=== PATIENT | male | born 1970 | race Caucasian/White ===

== ENCOUNTER 2022-03-23 18:37 | Emergency (ER) | payer OTHER ==
[~2022-03-23] VITALS: Ht 167.6 cm; Wt 88.5 kg
[~2022-03-23 18:37] MED LIST: KETO10TA2 PO
== END 2022-03-23 22:33 | disposition designated cancer center or children's hospital (05) ==
LOC: ER 18:37
DX: I21.9 Acute myocardial infarction, unspecified (principal); Z20.822 Contact with and (suspected) exposure to COVID-19

== ENCOUNTER 2024-08-23 09:00 | Inpatient (IN) | payer OTHER ==
[~2024-08-23] VITALS: Ht 170.2 cm; Wt 93.0 kg
[2024-08-23] MEDS ORDERED: ATORVASTATIN CA40 MG PO (09:11)
[2024-08-23] MEDS ORDERED: TOPROL XL25 M1 PO (09:11)
[2024-08-23] MEDS ORDERED: COZAAR25 MG PO (09:11)
[2024-08-23] MEDS ORDERED: BRILINTA60 MG PO (09:11)
--- NOTE | 2024-08-23 09:13 | NUR ---
PACIENTE ALERTA Y ORIENTADO X3 REFIERE QUE DESDE EL OCTAVIO ESTAR CON DOLOR ABDOMINAL FLANCO LIBBY Y TENER UNAS PUNZADAS. REFIERE EVACUAR MUY POCO. NIEGA VOMITOS O SANGR[place].
[2024-08-23] MEDS ORDERED: FAMOTIDINE/PF 20 MG in 0.9 % SODIUM CHLORIDE 8 ML IV PUSH STA (09:28)
[2024-08-23] MEDS ORDERED: MORPHINE SULFATE 4 MG/ML VIAL IV ONE (09:30)
[2024-08-23] MEDS ORDERED: PIPERACILLIN/TAZOBACTAM SODIUM 3.375 GM VIAL IV ONE (09:30)
[2024-08-23] MEDS ORDERED: 0.9 % SODIUM CHLORIDE 1,000 ML IV SCH ×2 (09:30→16:45)
[2024-08-23] MEDS ORDERED: ONDANSETRON HCL 2 MG/ML VIAL IV ONE (09:45)
--- NOTE | 2024-08-23 10:38 | NUR ---
SE ORIENTA A PACIENTE SOBRE TRATAMIENTO MEDICO QUIEN INDICA ENTENDER Y ACEPTAR. SE COLECTAN MUESTRAS DE LABORATORIO BAJO MEDIDAS ASEPTICAS Y SE ADMINISTRAN MEDICAMENTOS KRIS ORDEN MEDICA. PENDIENTE CT CON CONTRASTE PO.
[2024-08-23 10:52] LABS: HEMATOCRIT 36.2 % (39.0-48.0); HEMOGLOBIN 11.1 g/dL (13-16.00); MEAN CELL VOLUME 72.7 fL (80.0-100.00); MEAN CORPUSCULAR HEMOGLOBIN 22.4 pg (27.00-32.0); MEAN CORPUSCULAR HGB CONC 30.8 g/dl (32.0-36.0); PLATELET COUNT 394 K/uL (150-450); RED BLOOD COUNT 4.98 M/uL (4.00-6.00)
[2024-08-23 11:15] LABS: ALBUMIN 2.8 gm/dL (3.4-5.0); BILIRUBIN TOTAL 0.63 mg/dL (0.3-1.2); CALCIUM 8.6 mg/dL (8.5-10.1); CREATININE SERUM 1.01 mg/dL (0.70-1.30); GFR 77.57; GLOBULINA 5.1 G/DL (2.4-3.5); POTASSIUM 4.1 mEq/L (3.5-5.1); TOTAL PROTEIN 7.9 gm/dL (6.4-8.2)
[2024-08-23 11:49] LABS: PH,URINE 5.5 (5.0-8.0); URINE APPEARANCE Turbid; URINE BACTERIA 834.7 uL (0.0-1933); URINE BILIRRUBIN Small (NEGATIVE); URINE BLOOD Negative; URINE CAST 8.69 uL (0.0-1.40); URINE COLOR Dark Yellow; URINE EPITHELIAL CELLS 49.2 uL (0.0-38.8); URINE GLUCOSE Negative (NEGATIVE); URINE KETONE Trace (NEGATIVE); URINE LEUKOCYTE Negative; URINE NITRATE Negative; URINE RBC 24.4 uL (0.0-20.8); URINE WBC 15.1 uL (0.0-23.2)
[2024-08-23 12:16] LABS: URINE PROTEIN 100 (NEGATIVE)
--- NOTE | 2024-08-23 15:07 | NUR ---
PTE ALERTA Y ORIENTADA X3, PTE EN CAN CON BARANDAS ELEVADAS POR HINSON SEGURIDAD. PTE EN CAN CON BARANDAS ELEVADAS POR HINSON SEGURIDAD EN POSICION SEMI SENTADA. PTE EN ESPERA DE CONSULTA A DR. KANDIS DUKE
[2024-08-23] MEDS ORDERED: ONDANSETRON HCL 4 MG in 0.9 % SODIUM CHLORIDE 50 ML IV PRN (16:45)
[2024-08-23] MEDS ORDERED: ACETAMINOPHEN 500 MG GEL..CAP PO PRN (17:00)
[2024-08-23] MEDS ORDERED: MORPHINE SULFATE 4 MG/ML CARTRIDGE IV PRN (17:00)
[2024-08-23] MEDS ORDERED: PIPERACILLIN/TAZOBACTAM SODIUM 3.375 GM in 0.9 % SODIUM CHLORIDE 100 ML IV SCH (18:00)
[2024-08-23 19:50] LABS: INR 1.18; PARTIAL THROMBOPLASTIN TIME 30.5 SECONDS (22.0-34.0); PROTHROMBIN TIME 12.7 SECONDS (9.0-11.5)
[2024-08-23 21:58] VITALS: BP 130/64; O2SAT 97
[2024-08-24 02:06] VITALS: BP 114/76; O2SAT 95
[2024-08-24 08:00] VITALS: BP 112/71; O2SAT 96
[2024-08-24] MEDS ORDERED: METOPROLOL SUCCINATE 25 MG TAB.SR.24H PO SCH (09:00)
[2024-08-24] MEDS ORDERED: LOSARTAN POTASSIUM 25 MG TABLET PO SCH (09:00)
[2024-08-24] MEDS ORDERED: PANTOPRAZOLE SODIUM 40 MG/VIAL VIAL IV SCH (09:00)
[2024-08-24] MEDS ORDERED: ENOXAPARIN SODIUM 40 MG/0.4 ML SYRINGE SUBCUTANEO SCH (09:00)
[2024-08-24 15:50] VITALS: BP 123/70
[2024-08-25 03:31] VITALS: BP 123/78; O2SAT 97
[2024-08-25 05:15] LABS: HEMATOCRIT 28.7 % (39.0-48.0); MEAN CELL VOLUME 72.1 fL (80.0-100.00); MEAN CORPUSCULAR HGB CONC 31.5 g/dl (32.0-36.0); PLATELET COUNT 289 K/uL (150-450); RED BLOOD COUNT 3.99 M/uL (4.00-6.00); RED CELL DISTRIBUTION WIDTH 17.7 % (11.5-14.5)
[2024-08-25 05:20] LABS: HEMOGLOBIN 9.1 g/dL (13-16.00); MEAN CORPUSCULAR HEMOGLOBIN 22.8 pg (27.00-32.0)
[2024-08-25 05:37] LABS: ALBUMIN 2.1 gm/dL (3.4-5.0); BILIRUBIN TOTAL 0.51 mg/dL (0.3-1.2); CALCIUM 8.2 mg/dL (8.5-10.1); CREATININE SERUM 0.75 mg/dL (0.70-1.30); GFR 109.36; GLOBULINA 3.5 G/DL (2.4-3.5); PHOSPHOROUS 4.1 mg/dL (2.5-4.9); POTASSIUM 4.26 mEq/L (3.5-5.1); TOTAL PROTEIN 5.6 gm/dL (6.4-8.2)
[2024-08-25 05:38] LABS: C-REACTIVE PROTEIN 11.3 MG/DL (0.00-0.29)
[2024-08-25 08:45] VITALS: BP 112/69; O2SAT 98
[2024-08-25] MEDS ORDERED: SOD FERRIC GLUC COMPLX/SUCROSE 62.5 MG in 0.9 % SODIUM CHLORIDE 50 ML IV SCH (09:00)
[2024-08-25] MEDS ORDERED: CYANOCOBALAMIN (VITAMIN B-12) 1,000 MCG/ML VIAL IM SCH (09:00)
[2024-08-25 16:57] VITALS: BP 112/54
[2024-08-26 02:06] VITALS: BP 110/68; O2SAT 98
[2024-08-26 08:14] VITALS: BP 128/58
[2024-08-26 17:30] VITALS: BP 127/72; O2SAT 95
[2024-08-27 00:32] VITALS: BP 124/89
[2024-08-27 08:08] VITALS: BP 163/80; O2SAT 95
[2024-08-27 17:50] VITALS: BP 144/91; O2SAT 98
[2024-08-28 01:31] VITALS: BP 123/59
[2024-08-28 07:38] LABS: HEMATOCRIT 27.6 % (39.0-48.0); MEAN CELL VOLUME 71.9 fL (80.0-100.00); MEAN CORPUSCULAR HGB CONC 31.8 g/dl (32.0-36.0); PLATELET COUNT 327 K/uL (150-450); RED BLOOD COUNT 3.84 M/uL (4.00-6.00); RED CELL DISTRIBUTION WIDTH 18.1 % (11.5-14.5)
[2024-08-28 07:47] LABS: HEMOGLOBIN 8.8 g/dL (13-16.00); MEAN CORPUSCULAR HEMOGLOBIN 22.9 pg (27.00-32.0)
[2024-08-28 08:09] VITALS: BP 133/60; O2SAT 97
[2024-08-28 08:23] LABS: ALBUMIN 2.2 gm/dL (3.4-5.0); BILIRUBIN TOTAL 0.38 mg/dL (0.3-1.2); CALCIUM 7.9 mg/dL (8.5-10.1); CREATININE SERUM 0.83 mg/dL (0.70-1.30); GFR 97.29; GLOBULINA 3.8 G/DL (2.4-3.5); MAGNESIUM 1.9 mg/dL (1.8-2.4); POTASSIUM 4.53 mEq/L (3.5-5.1)
[2024-08-28] MEDS ORDERED: DIATRIZOATE MEGLUMINE, SODIUM 30 ML BOTTLE PO NR (11:00)
[2024-08-28 17:00] VITALS: BP 137/83
[2024-08-29 01:02] VITALS: BP 129/76; O2SAT 96
[2024-08-29 08:52] VITALS: BP 151/75; O2SAT 99
[2024-08-29 17:47] VITALS: BP 133/70
[2024-08-30 02:30] VITALS: BP 147/81; O2SAT 97
[2024-08-30] MEDS ORDERED: LACTOBACILLUS ACIDOPHILUS 1 CAP CAP PO SCH (09:00)
[2024-08-30 09:40] VITALS: BP 144/90; O2SAT 97
[2024-08-30 19:20] VITALS: BP 119/70
[2024-08-31 01:45] VITALS: BP 138/81; O2SAT 100
[2024-08-31 06:38] LABS: HEMATOCRIT 30.7 % (39.0-48.0); HEMOGLOBIN 9.7 g/dL (13-16.00); MEAN CELL VOLUME 72.8 fL (80.0-100.00); MEAN CORPUSCULAR HEMOGLOBIN 22.9 pg (27.00-32.0); MEAN CORPUSCULAR HGB CONC 31.5 g/dl (32.0-36.0); PLATELET COUNT 319 K/uL (150-450); RED BLOOD COUNT 4.22 M/uL (4.00-6.00); RED CELL DISTRIBUTION WIDTH 18.2 % (11.5-14.5)
[2024-08-31 07:08] LABS: ALBUMIN 2.1 gm/dL (3.4-5.0); BILIRUBIN TOTAL 0.33 mg/dL (0.3-1.2); CREATININE SERUM 0.79 mg/dL (0.70-1.30); GLOBULINA 4.1 G/DL (2.4-3.5); MAGNESIUM 1.7 mg/dL (1.8-2.4); POTASSIUM 4.42 mEq/L (3.5-5.1); TOTAL PROTEIN 6.2 gm/dL (6.4-8.2)
[2024-08-31 07:24] LABS: C-REACTIVE PROTEIN 2.82 MG/DL (0.00-0.29)
[2024-08-31 08:45] VITALS: BP 151/83; O2SAT 97
[2024-08-31] MEDS ORDERED: INTESTINEX680 M1 PO (09:10)
[2024-08-31] MEDS ORDERED: AMOX-CLAV 875-1 EACH PO (09:10)
[2024-08-31 09:15] LABS: PLATELET ESTIMATE NORMAL (NORMAL)
== END 2024-08-31 12:00 | disposition home or self-care (01) | DRG 392 ==
LOC: ER 09:03 → MEDI 17:07 → SEC-K 17:07 → MEDI 19:56
PROVIDERS: General Practice; Internal Medicine Infectious Disease; ADMIT Internal Medicine; ATTEND Internal Medicine
PROC: BW21ZZZ Computerized Tomography (CT Scan) of Abdomen and Pelvis (ICD-10-PCS; principal; 2024-08-23)
PROC: B24BZZZ Ultrasonography of Heart with Aorta (ICD-10-PCS; 2024-08-23)
PROC: BW21ZZZ Computerized Tomography (CT Scan) of Abdomen and Pelvis (ICD-10-PCS; 2024-08-28)
DX: K57.20 Diverticulitis of large intestine with perforation and abscess without bleeding (principal); D68.62 Lupus anticoagulant syndrome; E78.5 Hyperlipidemia, unspecified; I25.10 Atherosclerotic heart disease of native coronary artery without angina pectoris; I11.9 Hypertensive heart disease without heart failure